=== PATIENT | male | born 1935 | race African-American/Black ===

== ENCOUNTER 2016-09-23 11:05 | Emergency (ER) ==
[2016-09-23] MEDS ORDERED: DUONEB (A & A) INH ONE (11:47)
--- NOTE | 2016-09-23 12:10 | PROVIDER DOCUMENTATION ---
HPI-Respiratory General - General Source: patient - History of Present Illness-Resp Quality of Pain: reports: none Severity in ED: reports: severe Onset/Duration: reports: 3 days ago Timing: reports: getting worse Cough Quality/Degree: reports: productive cough Current Respiratory Medication Therapy: Initiated see nurses note Similar Symptoms Previously?: No Recently seen or treated by another doctor?: Yes <Jeremías Gray - Last Filed: 09/23/16 13:00> <Velma Randall - Last Filed: 09/23/16 13:48> - General Chief Complaint: Shortness of Breath Stated Complaint: ABD PAIN Time Seen by Provider: 09/23/16 11:44 Allergies/Adverse Reactions: Patient Allergies Allergy/AdvReac Type Severity Reaction Status Date / Time No Known Allergies Allergy Verified 06/16/16 02:06 Home Medications: Budesonide/Formoterol Fumarate [Symbicort 80-4.5 Mcg Inhaler] 1 puff INH DAILY 06/01/16 Losartan/Hctz [Hyzaar 100/12.5 mg Tab] 1 tab PO DAILY 06/01/16 Albuterol Sulfate [Ventolin Hfa] 1 puff INH 4XDAY PRN PRN 06/02/16 Simvastatin 20 mg PO QHS 06/02/16 Tamsulosin [Flomax] 0.4 mg PO DAILY 06/02/16 - History of Present Illness-Resp Nature of Presenting Problem: Reports to er with cc of sob and wheezing x 1 month worsening past 3 days. Reports hx of bone cancer goes to once and month and gets a "unknown Injection." Reports productive cough. Weight loss x 1 year upon diagnosis of bone cancer. reports head pressure denies headache,n,v,f. Denies blurry vision, numbness. (Jeremías Gray) Review of Systems - Adult - REVIEW OF SYSTEMS - ADULT Constitutional: denies: chills, fever, fatique Eyes: denies: dry eyes, blurred vision, double vision, eye pain Ears, Nose, Mouth & Throat: reports: other (head pressure). denies: ear pain, sinus problem, throat pain Cardiovascular: denies: chest pain, irregular heart rate, orthopnea, syncope Respiratory: reports: cough, shortness of breath, wheezing. denies: dyspnea on exertion, pleurisy Gastrointestinal: denies: abdominal pain, diarrhea, nausea, vomiting Genitourinary: reports: no symptoms reported Musculoskeletal: reports: no symptoms reported Integumentary: reports: no symptoms reported Neurological: reports: no symptoms reported Psychiatric: reports: no symptoms reported Endocrine: reports: no symptoms reported Hematologic/Lymphatic: reports: no symptoms reported Allergic/Immunologic: reports: no symptoms reported All Other Systems: Reviewed and Negative <Annalisa Graypriscilla - Last Filed: 09/23/16 13:00> Past History - Adult - PAST MEDICAL HISTORY-ADULT Review of Records: reports: Nursing Assessment Review Major Childhood Illnesses: reports: denies history Cardiovascular: reports: CAD, HTN Respiratory: reports: COPD Gastrointestinal: reports: denies history Obstetrical/Gynecological: reports: denies history Genitourinary: reports: denies history Musculoskeletal: reports: denies history Neurological: reports: denies history Endocrine/Immune: reports: denies history Other Conditions: reports: denies history - PRIOR SURGERIES/PROCEDURES Surgical/Procedure History: reports: cardiac stent, other (cyst removed) - IMMUNIZATION STATUS Childhood Immunizations: See Nurse Assessment Flu Vaccine: See Nurse Assessment - FAMILY HISTORY Family History: reviewed, not pertinent - SOCIAL HISTORY Smoking: cigarettes, greater than 1 pack/day Provider spent 3-5 mins advising pt. on dangers of tobacco.: Discussed manners to quit use, and f/u contacts for add'l counseling. Substance Use: none/never <IsaacJeremías - Last Filed: 09/23/16 13:00> Physical Exam-General - PHYSICAL EXAM-ADULT Initial Vital Signs Reviewed: Yes - CONSTITUTIONAL General Appearance: alert, no apparent distress, cachetic, thin. negative: appears well - EYES Eyes: PERRL/EOMI, pink conjunctivae - HEAD, EARS, NOSE, MOUTH & THROAT HENMT: normocephalic/atraumatic, moist mucous membranes, normal ENT inspection - NECK Neck: non-tender, full range of motion, supple, normal inspection - RESPIRATORY Respiratory: chest non-tender, lungs clear, normal breath sounds, no pleuratic chest pain, no respiratory distress, no accessory muscle use - CARDIOVASCULAR Cardiovascular: normal peripheral pulses, regular rate, rhythm, no edema, no gallop, no JVD, no murmur - GASTROINTESTINAL (ABDOMEN) Abdominal Exam: normal bowel sounds, non tender, soft, no organomegaly, no pulsatile mass - LYMPHATIC Lymphatic: no adenopathy - MUSCULOSKELETAL Back Exam: normal inspection, no CVA tenderness, no vertebral tenderness Extremity: normal range of motion, non-tender, normal gait - SKIN Integumentary: normal color, normal turgor, warm/dry - NEUROLOGIC Neurologic: grossly normal, no motor/sensory deficits - PSYCHIATRIC Psych/Mental Status: normal mood/affect, normal thought content, normal thought process, oriented x 3 <Jeremías Gray - Last Filed: 09/23/16 13:00> Progress - EKG 1 Time of EKG reading by physician:: 12:26 EKG Read and Signed by:: Jone Kidd EKG Interpretation (*Must complete 3 of following elements*): Normal Rate: 62 Rhythm: nsr [place]: normal QRS: normal <Jeremías Gray - Last Filed: 09/23/16 13:00> - XRAY 1 XRAY: Bilateral XRAY Study: Chest Impression: Normal (stable per radiology) <Velma Randall - Last Filed: 09/23/16 13:48> - PLAN OF CARE/RESULTS Progress/Plan/Lab Results: Orders Category Date Time Status CHEST-2 VIEWS [RAD] Stat Exams 09/23/16 11:49 Taken CBC WITH ELECTRONIC DIFF [HEME] Stat Lab 09/23/16 11:48 Ordered CK PROFILE [SP CHEM] Stat Lab 09/23/16 11:48 Ordered COMPREHENSIVE METABOLIC PANEL [CHEM] Stat Lab 09/23/16 11:[address] Stat Lab 09/23/16 11:48 Uncollected MAGNESIUM [CHEM] Stat Lab 09/23/16 11:48 Ordered TROPONIN T Stat Lab 09/23/16 11:48 Ordered Albuterol 2.5MG/Ipratrop 0.5MG [Duoneb (A & A)] Med 09/23/16 11:47 Discontinued 3 ml INH NOW ONE Aerosol Treatments Routine Oth 09/23/16 11:47 Active Aerosol Treatments Stat Oth 09/23/16 11:47 Active EKG [EKG] Stat Ther 09/23/16 11:48 Ordered Vital Signs - 24 hr 09/23/16 11:12 Temperature 97.8 F Pulse Rate 77 Respiratory 22 Rate Blood Pressure 145/84 O2 Sat by Pulse 98 Oximetry (Jeremías Gray) Vital Signs Temp Pulse Resp BP Pulse Ox 09/23/16 12:29 98.6 F 68 18 150/80 98 09/23/16 11:12 97.8 F 77 22 145/84 98 No Known Allergies Allergy (Verified 06/16/16 02:06) Budesonide/Formoterol Fumarate [Symbicort 80-4.5 Mcg Inhaler] 1 puff INH DAILY 06/01/16 Losartan/Hctz [Hyzaar 100/12.5 mg Tab] 1 tab PO DAILY 06/01/16 Albuterol Sulfate [Ventolin Hfa] 1 puff INH 4XDAY PRN PRN 06/02/16 Simvastatin 20 mg PO QHS 06/02/16 Tamsulosin [Flomax] 0.4 mg PO DAILY 06/02/16 Prednisone 10 mg PO DAILY #30 tablet 06/04/16 Ciprofloxacin HCl [Cipro] 500 mg PO BID #20 tablet 06/19/16 Cephalexin [Keflex] 500 mg PO Q6HR #28 capsule 07/03/16 Meloxicam [Mobic] 7.5 mg PO DAILY PRN PRN #15 tablet 07/03/16 Laboratory 09/23/16 09/23/16 09/23/16 12:55 12:55 12:55 WBC 4.48 L RBC 3.27 L Hgb 10.2 L Hct 32.6 L MCV 99.7 H MCH 31.2 H MCHC 31.3 L RDW Std Deviation 14.4 Plt Count 191 MPV 9.0 Immature Gran % (Auto) 0.2 Neut % (Auto) 65.0 Lymph % (Auto) 22.5 Boyle % (Auto) 12.1 H Eos % (Auto) 0.2 Baso % (Auto) 0.0 Immature Gran # (Auto) 0.01 Neut # (Auto) 2.91 Lymph # (Auto) 1.01 L Boyle # (Auto) 0.54 Eos # (Auto) 0.01 Baso # (Auto) 0.00 Sodium 140 Potassium 4.2 Chloride 111 H Carbon Dioxide 20 L Anion Gap 9 BUN 21 Creatinine 1.2 Estimated GFR/1.73 m2 58 BUN/Creatinine Ratio 18 Glucose 85 Calculated Osmolality 282 Calcium 8.4 L Magnesium 1.6 Total Bilirubin 0.40 AST 18 ALT 8 L Alkaline Phosphatase 117 Creatine Kinase 56 Troponin T < 0.010 Total Protein 6.6 Albumin 3.8 Globulin 3.0 Albumin/Globulin Ratio 1.0 Influenza A (Rapid) Influenza B (Rapid) 09/23/16 12:40 WBC RBC Hgb Hct MCV MCH MCHC RDW Std Deviation Plt Count MPV Immature Gran % (Auto) Neut % (Auto) Lymph % (Auto) Boyle % (Auto) Eos % (Auto) Baso % (Auto) Immature Gran # (Auto) Neut # (Auto) Lymph # (Auto) Boyle # (Auto) Eos # (Auto) Baso # (Auto) Sodium Potassium Chloride Carbon Dioxide Anion Gap BUN Creatinine Estimated GFR/1.73 m2 BUN/Creatinine Ratio Glucose Calculated Osmolality Calcium Magnesium Total Bilirubin AST ALT Alkaline Phosphatase Creatine Kinase Troponin T Total Protein Albumin Globulin Albumin/Globulin Ratio Influenza A (Rapid) NEGATIVE Influenza B (Rapid) NEGATIVE Orders Category Date Time Status CHEST-2 VIEWS [RAD] Stat Exams 09/23/16 11:49 Completed CBC WITH ELECTRONIC DIFF [HEME] Stat Lab 09/23/16 12:55 Completed CK PROFILE [SP CHEM] Stat Lab 09/23/16 12:55 Completed COMPREHENSIVE METABOLIC PANEL [CHEM] Stat Lab 09/23/16 12:[address] Stat Lab 09/23/16 12:40 Completed MAGNESIUM [CHEM] Stat Lab 09/23/16 12:55 Completed TROPONIN T Stat Lab 09/23/16 12:55 Completed Albuterol 2.5MG/Ipratrop 0.5MG [Duoneb (A & A)] Med 09/23/16 11:47 Discontinued 3 ml INH NOW ONE Aerosol Treatments Routine Oth 09/23/16 11:47 Active Aerosol Treatments Stat Oth 09/23/16 11:47 Active EKG [EKG] Stat Ther 09/23/16 11:48 Draft (Velma Randall) Departure <Jeremías Gray - Last Filed: 09/23/16 13:00> - Departure Time of Disposition Order: 13:47 Certified Medical Emergency: Emergent <Velma Randall - Last Filed: 09/23/16 13:48> - Departure DIAGNOSIS: Bronchitis, COPD exacerbation Disposition: HOME 01 Condition: Stable Additional Instructions: Follow up with your primary care physician this week ED Follow Up Instructions: You have been treated by a care provider in the Emergency Department. These instructions are being provided to you so you can have an understanding of how to care for yourself upon discharge. Upon discharge from the Emergency Department, you are responsible for making arrangements for follow-up care by a physician of your choice. Take all prescribed medications as directed. Return to the Emergency Department immediately for any new or worsening symptoms. You may call the Physician Referral phone number at [phone] to obtain a list of Physicians who are taking new patients. Prescriptions: Nebulizer [Aeroneb Go Nebuliser] 1 each MC DIRECTED #1 each Albuterol [Albuterol Neb] 2.5 mg INH Q4H PRN PRN #1 neb PRN Reason: Wheezing Prednisone [Deltasone] 20 mg PO DIRECTED #12 tablet Azithromycin [Zithromax Z-Vega] 250 mg PO DIRECTED #1 pkg Attestation - Scribe Verification/Attestation Scribe:: Jeremías Gray Acting as Scribe for:: Velma Randall Scribe documention review:: This chart was documented by a scribe and accurately reflects the service the provider performed and the decisions made by the provider. <Jeremías Gray - Last Filed: 09/23/16 13:00> Physician Attestation
--- NOTE | 2016-09-23 13:05 | Diag Imaging Result Document ---
PROCEDURE NAME: CHEST-2 VIEWS - 09/23/2016 TWO VIEWS OF THE CHEST: FINDINGS: There are granulomatous calcifications in the right hilum. There is fibrosis in the right base. Compared to 08/26/2016, there has been no significant change in the appearance of the chest. IMPRESSION: Stable chest.
[2016-09-23 13:12] LABS: MANUAL DIFF NEEDED? NO
--- NOTE | 2016-09-23 13:13 | EKG Report ---
Test Performed on : 09/23/2016 12:26:34 PM Test Reason : CP Blood Pressure : / mmHG Vent. Rate : 062 BPM Atrial Rate : 062 BPM P-R Int : 152 ms QRS Dur : 080 ms QT Int : 410 ms P-R-T Axes : 033 030 045 degrees QTc Int : 416 ms Normal sinus rhythm. Normal ECG When compared with ECG of 02-JUN-2016 17:53, aberrant conduction. is no longer present Vent. rate has decreased BY 42 BPM QRS axis shifted right T wave amplitude has increased in Lateral leads QT has shortened Unconfirmed Result
[2016-09-23 13:15] LABS: EOS# 0.01 X1000 (0.0-0.7); EOS% 0.2 % (0.0-10.0); HEMATOCRIT 32.6 % (42.0-52.0); HEMOGLOBIN 10.2 g/dL (14.0-18.0); IMM GRAN# 0.01 X1000 (0.0-0.04); IMM GRAN% 0.2 % (0.0-0.5); LYMPH# 1.01 X1000 (1.2-3.4); LYMPH% 22.5 % (20.5-51.1); MCH 31.2 PG (27-31); MCHC 31.3 g/dL (33-37); MCV 99.7 FL (81-99); MONO# 0.54 X1000 (0.11-0.59); MONO% 12.1 % (1.7-9.3); PLT 191 X1000 (130-400); RBC 3.27 XMIL (4.7-6.1)
[2016-09-23 13:37] LABS: ALBUMIN 3.8 g/dL (3.5-5.0); CALCIUM 8.4 mg/dL (8.8-10.2); MAGNESIUM 1.6 mg/dL (1.5-2.7); POTASSIUM 4.2 mmol/L (3.5-5.1); TOTAL BILIRUBIN 0.4 mg/dL (0.20-1.00); TOTAL PROTEIN 6.6 g/dL (6.3-8.3)
[2016-09-23 14:16] VITALS: BP 110/68
== END 2016-09-23 14:15 | disposition home or self-care (01) ==
LOC: P.ED 11:05
DX: J40 Bronchitis, not specified as acute or chronic (principal); J44.1 Chronic obstructive pulmonary disease with (acute) exacerbation; R05 Cough; R09.3 Abnormal sputum; R06.02 Shortness of breath; R10.9 Unspecified abdominal pain; R06.2 Wheezing; R51 Headache; Z79.899 Other long term (current) drug therapy; R63.4 Abnormal weight loss; I25.10 Atherosclerotic heart disease of native coronary artery without angina pectoris; I10 Essential (primary) hypertension; F17.210 Nicotine dependence, cigarettes, uncomplicated; Z85.830 Personal history of malignant neoplasm of bone; Z95.5 Presence of coronary angioplasty implant and graft; Z71.6 Tobacco abuse counseling
CPT/HCPCS: 36415; 71020; 80053; 82550; 83735; 84484; 85025; 87804; 93005; 94640

== ENCOUNTER 2016-11-12 21:57 | Emergency (ER) ==
[2016-11-12 22:08] VITALS: BP 134/86
--- NOTE | 2016-11-12 23:18 | PROVIDER DOCUMENTATION ---
HPI-Male Problem - General Chief Complaint: Urinary Retention Stated Complaint: CANT URINATE Time Seen by Provider: 11/12/16 22:29 Source: patient Allergies/Adverse Reactions: Patient Allergies Allergy/AdvReac Type Severity Reaction Status Date / Time No Known Allergies Allergy Verified 06/16/16 02:06 Home Medications: Home Medication List Medication Instructions Recorded Confirmed Last Taken Type Budesonide/Formoterol Fumarate 1 puff INH DAILY 06/01/16 10/30/16 Unknown History [Symbicort 80-4.5 Mcg Inhaler] Losartan/Hctz [Hyzaar 100/12.5 mg 1 tab PO DAILY 06/01/16 10/30/16 Unknown History Tab] Simvastatin 20 mg PO QHS 06/02/16 10/30/16 Unknown History Tamsulosin [Flomax] 0.4 mg PO DAILY 06/02/16 10/30/16 Unknown History Meloxicam [Mobic] 7.5 mg PO DAILY PRN PRN #15 tablet 07/03/16 10/30/16 Unknown Rx Albuterol [Albuterol Neb] 2.5 mg INH Q4H PRN PRN #1 neb 09/23/16 10/30/16 Unknown Rx Nebulizer [Aeroneb Go Nebuliser] 1 each MC DIRECTED #1 each 09/23/16 Unknown Rx - History of Present Illness-Male Location of Complaint: reports: urethral Radiation: reports: none Quality of Pain: reports: none Severity in ED: reports: mild Onset/Duration: reports: 24 hours ago Timing: reports: still present Context/Activities at Onset: reports: none Urinary Symptoms: reports: retention. denies: dysuria, hematuria Sexual intercourse history: reports: Not Active Contraception: reports: none Associated Symptoms: reports: none Associated Symptoms: reports: denies symptoms Similar Symptoms Previously?: Yes Recently seen or treated by another doctor?: No Review of Systems - Adult - REVIEW OF SYSTEMS - ADULT Constitutional: denies: chills, fever, fatique Cardiovascular: denies: chest pain, irregular heart rate, palpitations Respiratory: denies: cough, shortness of breath, wheezing Gastrointestinal: denies: abdominal pain, diarrhea, nausea, vomiting Genitourinary: reports: hesitency, urinary retention. denies: dysuria, hematuria Musculoskeletal: denies: back pain, muscle aches, neck pain Integumentary: denies: hives, itching, rash All Other Systems: Reviewed and Negative Past History - Adult - PAST MEDICAL HISTORY-ADULT Review of Records: reports: Old Records Reviewed, Nursing Assessment Review Cardiovascular: reports: CAD, HTN Respiratory: reports: COPD - PRIOR SURGERIES/PROCEDURES Surgical/Procedure History: reports: cardiac stent, other (cyst removed) - IMMUNIZATION STATUS Childhood Immunizations: See Nurse Assessment Flu Vaccine: See Nurse Assessment - FAMILY HISTORY Family History: reviewed, not pertinent - SOCIAL HISTORY Living Situation: family Physical Exam-General - PHYSICAL EXAM-ADULT Initial Vital Signs Reviewed: Yes - CONSTITUTIONAL General Appearance: appears well, alert, no apparent distress - RESPIRATORY Respiratory: chest non-tender, lungs clear, normal breath sounds, no pleuratic chest pain, no respiratory distress, no accessory muscle use - CARDIOVASCULAR Cardiovascular: normal peripheral pulses, regular rate, rhythm, no edema, no gallop, no JVD, no murmur - GASTROINTESTINAL (ABDOMEN) Abdominal Exam: normal bowel sounds, non tender, soft, no organomegaly, no pulsatile mass - MUSCULOSKELETAL Extremity: normal inspection - SKIN Integumentary: normal color, normal turgor, warm/dry - PSYCHIATRIC Psych/Mental Status: normal mood/affect, normal thought content, normal thought process, oriented x 3 Departure - Departure Time of Disposition Order: 23:16 DIAGNOSIS: Urinary retention due to benign prostatic hyperplasia Disposition: HOME 01 Certified Medical Emergency: Emergent Condition: Good Additional Instructions: ED Follow Up Instructions: You have been treated by a care provider in the Emergency Department. These instructions are being provided to you so you can have an understanding of how to care for yourself upon discharge. Upon discharge from the Emergency Department, you are responsible for making arrangements for follow-up care by a physician of your choice. Take all prescribed medications as directed. Return to the Emergency Department immediately for any new or worsening symptoms. You may call the Physician Referral phone number at [phone] to obtain a list of Physicians who are taking new patients.follow up with urologist Referrals: Lalo Perez DO [STAFF PHYSICIAN] - Shane Dwyer MD [Primary Care Provider] - Instructions: Urinary Retention, Acute, Male Attestation - Scribe Verification/Attestation Scribe:: Dominik Simon Acting as Scribe for:: Perfecto Eric Scribe documention review:: This chart was documented by a scribe and accurately reflects the service the provider performed and the decisions made by the provider.
== END 2016-11-12 23:14 | disposition home or self-care (01) ==
LOC: P.ED 21:57
DX: N40.1 Benign prostatic hyperplasia with lower urinary tract symptoms (principal); R33.8 Other retention of urine; R39.11 Hesitancy of micturition; I25.10 Atherosclerotic heart disease of native coronary artery without angina pectoris; I10 Essential (primary) hypertension; J44.9 Chronic obstructive pulmonary disease, unspecified; Z79.899 Other long term (current) drug therapy
CPT/HCPCS: 51702; 99282

== ENCOUNTER 2017-05-11 20:11 | Inpatient (IN) ==
[2017-05-11] MEDS ORDERED: ASPIRIN PO STA (20:52)
[2017-05-11] MEDS ORDERED: DUONEB (A & A) INH ONE (20:53)
[2017-05-11] MEDS ORDERED: SOLU-MEDROL IV ONE (20:53)
[2017-05-11] MEDS ORDERED: ALBUTEROL NEB INH ONE ×2 (20:53→23:00)
[2017-05-11 21:08] LABS: MANUAL DIFF NEEDED? NO
[2017-05-11 21:12] LABS: BASO% 0.7 % (0.0-0.8); EOS# 0.02 X1000 (0.0-0.7); EOS% 0.7 % (0.0-10.0); HEMATOCRIT 31.1 % (42.0-52.0); LYMPH# 0.61 X1000 (1.2-3.4); LYMPH% 21.3 % (20.5-51.1); MCHC 35.4 g/dL (33-37); MCV 93.4 FL (81-99); MONO# 0.46 X1000 (0.11-0.59); MONO% 16.1 % (1.7-9.3); MPV 8.6 FL (7.4-10.4); NEUT% 61.2 % (42.2-75.2); PLT 274 X1000 (130-400); RBC 3.33 XMIL (4.7-6.1)
[2017-05-11 21:32] LABS: INR 1.26 (0.86-1.15); PROTIME 16.8 Seconds (12.1-15.5)
[2017-05-11 21:33] LABS: PTT PL 41.5 Seconds (22.6-43.9)
[2017-05-11 22:16] LABS: AGAP 9; ALBUMIN 3.4 g/dL (3.5-5.0); ALKALINE PHOSPHATASE 93 U/L (32-122); BUN 12 mg/dL (8-22); CALCIUM 8.1 mg/dL (8.8-10.2); CHLORIDE 82 mmol/L (98-107); CK PROFILE 103 U/L (24-204); COSMO 228; GOT 17 U/L (10-34); GPT 8 U/L (10-44); MAGNESIUM 1.6 mg/dL (1.5-2.7); POTASSIUM 3.6 mmol/L (3.5-5.1); TCO2 22 mmol/L (25-35)
[2017-05-11 22:21] LABS: SODIUM 113 mmol/L (136-145)
--- NOTE | 2017-05-11 22:34 | PROVIDER DOCUMENTATION ---
This chart was entered by Laurel Ramos Scribe, acting as scribe for Albert Luna MD. HPI-Respiratory General - General Chief Complaint: General Adult Stated Complaint: SOB,EDEMA,SOB Time Seen by Provider: 05/11/17 20:51 Source: patient Allergies/Adverse Reactions: Patient Allergies Allergy/AdvReac Type Severity Reaction Status Date / Time No Known Allergies Allergy Verified 04/05/17 11:58 Home Medications: Home Medication List Medication Instructions Recorded Confirmed Last Taken Type Budesonide/Formoterol Fumarate 1 puff INH DAILY 06/01/16 04/05/17 12/08/16 08: 00 History [Symbicort 80-4.5 Mcg Inhaler] Losartan/Hctz [Hyzaar 100/12.5 mg 1 tab PO DAILY 06/01/16 04/05/17 12/08/16 08: 00 History Tab] Simvastatin 20 mg PO QHS 06/02/16 04/05/17 12/08/16 08:00 History Albuterol [Albuterol Neb] 2.5 mg INH Q4H PRN PRN #1 neb 09/23/16 04/05/17 08:00 Rx Albuterol Sulfate [Ventolin] 5 mg IH DAILY 12/02/16 04/05/17 12/08/16 23:30 History Clopidogrel Bisulfate [Plavix] 75 mg PO DAILY 12/02/16 04/05/17 11/29/16 History Folic Acid 1 mg PO DAILY 12/02/16 04/05/17 12/08/16 08:00 History Furosemide 20 mg PO PRN PRN 12/02/16 04/05/17 12/07/16 History Metoprolol [Lopressor] 50 mg PO BID 12/02/16 04/05/17 12/09/16 03:00 History Mirtazapine [Remeron] 30 mg PO PRN PRN 12/02/16 04/05/17 12/08/16 08:00 History Potassium Chloride [Klor-Con] 20 meq PO PRN PRN 12/02/16 04/05/17 12/08/16 08: 00 History Promethazine [Phenergan] 25 mg PO Q6H PRN PRN 12/02/16 04/05/17 12/08/16 08:00 History Valacyclovir [Valtrex] 500 mg PO DAILY 12/02/16 04/05/17 12/08/16 12:00 History Hydrocodone/APAP 7.5 mg/325 mg 1 each PO Q4H PRN #12 tablet 12/10/16 04/05/17 Unknown Rx [[place]-7.5] Ondansetron [Zofran] 4 mg PO Q6H PRN PRN #20 tablet 04/05/17 Unknown Rx - History of Present Illness-Resp Nature of Presenting Problem: 82 year old F presents to the ED with a cc of shortness of breath with an onset of this afternoon. Pt states that he has taken his medications today. PT also c/ o a headache. Pt denies chest pain. PT states that he smokes 1 pack of cigarettes per day. Severity in ED: reports: mild Onset/Duration: reports: this afternoon Timing: reports: still present Cough Quality/Degree: reports: mild, dry cough Episode Frequency: no prior episodes Current Respiratory Medication Therapy: Initiated see nurses note Associated Symptoms: reports: cough, shortness of breath Similar Symptoms Previously?: Yes Recently seen or treated by another doctor?: No Review of Systems - Adult - REVIEW OF SYSTEMS - ADULT Constitutional: denies: chills, fever Eyes: reports: no symptoms reported Ears, Nose, Mouth & Throat: denies: ear pain, throat pain Cardiovascular: denies: chest pain, palpitations Respiratory: reports: cough, shortness of breath Gastrointestinal: denies: abdominal pain, nausea Genitourinary: denies: dysuria, hematuria Musculoskeletal: denies: muscle aches, muscle weakness Integumentary: denies: skin sores/ulcer, skin thickening Neurological: reports: no symptoms reported Psychiatric: reports: no symptoms reported Endocrine: reports: no symptoms reported Hematologic/Lymphatic: reports: no symptoms reported Allergic/Immunologic: reports: no symptoms reported All Other Systems: Reviewed and Negative Past History - Adult - PAST MEDICAL HISTORY-ADULT Review of Records: reports: Nursing Assessment Review, Medications Reviewed Major Childhood Illnesses: reports: denies history Cardiovascular: reports: CAD, HTN Respiratory: reports: COPD Gastrointestinal: reports: denies history Obstetrical/Gynecological: reports: denies history Genitourinary: reports: denies history Musculoskeletal: reports: cancer (bone) Neurological: reports: denies history Endocrine/Immune: reports: denies history Other Conditions: reports: denies history - PRIOR SURGERIES/PROCEDURES Surgical/Procedure History: reports: cardiac stent, other (cataract sx; abscess ; TURP) - IMMUNIZATION STATUS Childhood Immunizations: See Nurse Assessment Flu Vaccine: See Nurse Assessment - FAMILY HISTORY Family History: reviewed, not pertinent - SOCIAL HISTORY Smoking: cigarettes Provider spent 3-5 mins advising pt. on dangers of tobacco.: Discussed manners to quit use, and f/u contacts for add'l counseling. Substance Use: none/never Alcohol Use Frequency: never Living Situation: family Physical Exam-General - PHYSICAL EXAM-ADULT Initial Vital Signs Reviewed: Yes - CONSTITUTIONAL General Appearance: appears well, alert, no apparent distress - RESPIRATORY Respiratory: chest non-tender, lungs clear, wheezing - CARDIOVASCULAR Cardiovascular: normal peripheral pulses, regular rate, rhythm, no edema - GASTROINTESTINAL (ABDOMEN) Abdominal Exam: normal bowel sounds, non tender, soft - MUSCULOSKELETAL Extremity: pedal edema (2+ to lower 1/3 of bilateral legs) - SKIN Integumentary: normal color, normal turgor, warm/dry - PSYCHIATRIC Psych/Mental Status: normal mood/affect, normal thought content, normal thought process, oriented x 3 Progress - PLAN OF CARE/RESULTS Progress/Plan/Lab Results: Vital Signs - 8 hr 05/11/17 20:26 05/11/17 21:20 Temperature 98 F Pulse Rate 69 49 L Respiratory Rate 25 H 18 Blood Pressure 146/69 O2 Sat by Pulse Oximetry 98 100 Laboratory Results - last 24 hr 05/11/17 05/11/17 05/11/17 21:00 21:00 21:00 WBC RBC Hgb Hct MCV MCH MCHC RDW Std Deviation Plt Count MPV Immature Gran % (Auto) Neut % (Auto) Lymph % (Auto) Graves % (Auto) Eos % (Auto) Baso % (Auto) Immature Gran # (Auto) Neut # (Auto) Lymph # (Auto) Graves # (Auto) Eos # (Auto) Baso # (Auto) PT INR APTT (Factor Assay) D-Dimer Sodium 113 L* Potassium 3.6 Chloride 82 L Carbon Dioxide 22 L Anion Gap 9 BUN 12 Creatinine 1.0 Estimated GFR/1.73 m2 > 60 BUN/Creatinine Ratio 12 Glucose 89 Calculated Osmolality 228 Calcium 8.1 L Magnesium 1.6 Total Bilirubin 0.50 AST 17 ALT 8 L Alkaline Phosphatase 93 Creatine Kinase 103 Troponin T < 0.010 Msh-A-Wdywbkxxovk Pept 844 H Total Protein 6.0 L Albumin 3.4 L Globulin 3.0 Albumin/Globulin Ratio 1.0 05/11/17 05/11/17 21:00 21:00 WBC 2.86 L RBC 3.33 L Hgb 11.0 L Hct 31.1 L MCV 93.4 MCH 33.0 H MCHC 35.4 RDW Std Deviation 10.8 L Plt Count 274 MPV 8.6 Immature Gran % (Auto) 0.0 Neut % (Auto) 61.2 Lymph % (Auto) 21.3 Graves % (Auto) 16.1 H Eos % (Auto) 0.7 Baso % (Auto) 0.7 Immature Gran # (Auto) 0.00 Neut # (Auto) 1.75 Lymph # (Auto) 0.61 L Graves # (Auto) 0.46 Eos # (Auto) 0.02 Baso # (Auto) 0.02 PT 16.8 H INR 1.26 H APTT (Factor Assay) 41.5 D-Dimer 0.72 H Sodium Potassium Chloride Carbon Dioxide Anion Gap BUN Creatinine Estimated GFR/1.73 m2 BUN/Creatinine Ratio Glucose Calculated Osmolality Calcium Magnesium Total Bilirubin AST ALT Alkaline Phosphatase Creatine Kinase Troponin T Aeg-T-Lommltkiwoz Pept Total Protein Albumin Globulin Albumin/Globulin Ratio Orders Category Date Time Status Cardiac Monitoring DIRECTED Care 05/11/17 20:52 Active Oxygen Therapy- ED Nursing DIRECTED Care 05/11/17 20:52 Active Saline Loc NOW Care 05/11/17 20:52 Active CHEST-2 VIEWS [RAD] Stat Exams 05/11/17 20:52 Taken CBC WITH ELECTRONIC DIFF [HEME] Stat Lab 05/11/17 21:00 Completed CK PROFILE [SP CHEM] Stat Lab 05/11/17 21:00 Completed COMPREHENSIVE METABOLIC PANEL [CHEM] Stat Lab 05/11/17 21:00 Completed D-DIMER PL [COAG] Stat Lab 05/11/17 21:00 Completed MAGNESIUM [CHEM] Stat Lab 05/11/17 21:00 Completed PRO B-NATRIURETIC PEPTIDE Stat Lab 05/11/17 21:00 Com[address]IME WITH INR PL [COAG] Stat Lab 05/11/17 21:[address] [COAG] Stat Lab 05/11/17 21:00 Completed TROPONIN T Stat Lab 05/11/17 21:00 Completed Albuterol 2.5MG/Ipratrop 0.5MG [Duoneb (A & A)] Med 05/11/17 20:53 Discontinued 3 ml INH NOW ONE Albuterol [Albuterol Neb] Med 05/11/17 20:53 Discontinued 5 mg INH NOW ONE Aspirin Med 05/11/17 20:52 Discontinued 325 mg PO STAT STA CefTRIAXONE [Rocephin] 1 gm Med 05/11/17 22:33 Active 0.9% Sodium Chloride Inj [Ns] 50 ml IV NOW Methylprednisolone Sod Succ [Solu-Medrol] Med 05/11/17 20:53 Discontinued 125 mg IV NOW ONE Aerosol Treatments Routine Oth 05/11/17 20:53 Completed Aerosol Treatments Stat Oth 05/11/17 20:53 Completed EKG [EKG] Stat Ther 05/11/17 20:52 Ordered Result Diagrams: 05/11/17 21:00 05/11/17 21:00 - REASSESSMENT Reassessment #1 Time Reassessed: 22:33 (pt still has moderate wheezing and reports minimal improvemnt so far) Status: other - EKG 1 Time of EKG reading by physician:: 22:23 EKG Read and Signed by:: Albert Luna EKG Interpretation (*Must complete 3 of following elements*): Normal Rate: 62 Rhythm: sinus rhythm with marked sinus arrhythmia [place]: normal Departure - Departure Date of Disposition Decision: 05/11/17 Time of Disposition Decision: 22:34 DIAGNOSIS: COPD exacerbation, Hyponatremia Disposition: ADMITTED INPATIENT 09 Certified Medical Emergency: Emergent Condition: Fair Referrals and Follow-Ups: Shane Dwyer MD [Primary Care Provider] - - Critical Care Note This patient required my direct & personal management of CC.: No Attestation - Physician/ DANILO Attestation Patient care was provided by Advanced Practice Provider:: No The physician spent face to face time with patient:: Yes Advanced Practice Provider documentation review:: Supervising physician onsite and consulted in the evaluation and care of this patient. The physician did have a face to face encounter with the patient. This chart was documented by the indicated scribe, (Laurel Ramos Scribe) and accurately reflects the services I performed and decisions made by Cheryl quintero Kevin F., MD, as attested by the provider's signature.
--- NOTE | 2017-05-11 22:36 | Diag Imaging Result Doc PS360 ---
EXAM: CHEST-2 VIEWS - 05/11/2017 HISTORY: CP TECHNIQUE: Chest two views COMPARISON: Portable exam of 04/12/2017 FINDINGS: Heart size appears the upper range of normal and stable. There is stable tortuosity of the thoracic aorta. There are right lower lung calcified granuloma and calcified right hilar and mediastinal lymph nodes from old granulomatous disease which are stable. The lungs otherwise appear essentially clear. There is no pleural effusion or pneumothorax identified. There is colon gas noted beneath the right hemidiaphragm, similar to the previous exam. IMPRESSION: No evidence of acute disease. Electronically signed by Norman Garcia 05/11/2017 10:33 PM
--- NOTE | 2017-05-11 23:05 | EKG Report ---
Test Performed on : 05/11/2017 10:23:24 PM Test Reason : CHEST PAIN Blood Pressure : / mmHG Vent. Rate : 062 BPM Atrial Rate : 062 BPM P-R Int : 176 ms QRS Dur : 082 ms QT Int : 472 ms P-R-T Axes : 081 -21 063 degrees QTc Int : 479 ms Sinus rhythm. with marked sinus arrhythmia. Otherwise normal ECG When compared with ECG of 12-APR-2017 15:32, premature ventricular complexes. are no longer present T wave amplitude has decreased in Lateral leads QT has lengthened Unconfirmed Result
[2017-05-11] MEDS: ROCEPHIN 1 GM in NS 50 ML IV ONE (23:35)
[2017-05-12] MEDS: DUONEB (A & A) INH SCH ×7 (00:58→23:38)
[2017-05-12] MEDS: ROCEPHIN 1 GM in NS 50 ML IV ONE (01:22)
[2017-05-12] MEDS ORDERED: ROCEPHIN 1 GM in NS 50 ML IV ONE (02:00)
[2017-05-12 06:34] LABS: AGAP 15; BUN 13 mg/dL (8-22); CALCIUM 8.3 mg/dL (8.8-10.2); CHLORIDE 83 mmol/L (98-107); COSMO 238; POTASSIUM 3.8 mmol/L (3.5-5.1); TCO2 19 mmol/L (25-35)
[2017-05-12 06:38] LABS: SODIUM 116 mmol/L (136-145)
[2017-05-12] MEDS: NS 1,000 ML IV SCH ×2 (11:45→21:55)
[2017-05-12] MEDS ORDERED: ALBUTEROL NEB INH PRN (13:17)
[2017-05-12] MEDS ORDERED: REMERON SOLTAB PO PRN (13:17)
[2017-05-12] MEDS ORDERED: PHENERGAN PO PRN (13:17)
[2017-05-12] MEDS ORDERED: ZOFRAN ODT PO PRN (13:17)
[2017-05-12] MEDS: VALTREX PO SCH (13:53)
[2017-05-12] MEDS: FOLIC ACID PO SCH (13:53)
[2017-05-12] MEDS: PLAVIX PO SCH (13:54)
--- NOTE | 2017-05-12 14:37 | HISTORY AND PHYSICAL ---
PRIMARY CARE PHYSICIAN: Dr. Dwyer ONCOLOGIST: Dr. Nieves CHIEF COMPLAINT: Shortness of breath and a headache. HISTORY OF PRESENTING ILLNESS: This is an 82-year-old, male who presents to [facility] ER with complaints of shortness of breath that began on the afternoon of arrival. Also complained of a headache. States that he continues to be a pack-a-day smoker. Has a diagnosis of multiple myeloma, which is followed by Dr. Nieves. His workup in the ER showed a chest x-ray with no evidence of acute disease. He was noted to have a sodium of 113, with a chloride of 82. His white blood cell count is 2.86. His baseline white blood cell count appears to be 4 to 6, so this is certainly below his baseline. So, he was admitted to the medical unit for further evaluation and treatment. PAST MEDICAL HISTORY: Multiple myeloma, coronary artery disease, hypertension, COPD, GERD, and hyperlipidemia. PAST SURGICAL HISTORY: Heart stent placement, cataract surgery, a TURP and suprapubic catheter placement. FAMILY HISTORY: Noncontributory. SOCIAL HISTORY: Currently lives with family. Smokes 1 pack of cigarettes a day , and denies any alcohol or illicit drug use. ALLERGIES: He has no known drug allergies. HOME MEDICATIONS: He takes albuterol nebulizers q.4 hours p.r.n., Ventolin 5 mg inhalation daily, Symbicort 80/4.5 mcg inhaler 1 puff daily, Plavix 75 mg p.o. daily, folic acid 1 mg p.o. daily, Lasix 20 mg p.o. p.r.n. will be held, Hyzaar 100/12.5 will be held, Lopressor 50 mg p.o. b.i.d., Remeron 30 mg p.o. p.r.n., Zofran 4 mg p.o. q.6 hours p.r.n., potassium 20 mEq p.o. p.r.n. will be held, Phenergan 25 mg p.o. q.6 hours p.r.n., simvastatin 20 mg p.o. at bedtime, and Valtrex 500 mg p.o. daily. LABORATORY DATA: White blood cell count of 2.86, a hemoglobin of 11, hematocrit 31.1, platelets 274,000. PT and INR of 16.8 and 1.26. D-dimer 0.72. Sodium of 113, potassium 3.6, chloride 82, CO2 22, BUN of 12, creatinine of 1, glucose 89, magnesium 1.6. Cardiac enzymes were negative. ProBNP of 844. DIAGNOSTICS: The chest x-ray showed no evidence of acute disease. EKG showed sinus rhythm with marked sinus arrhythmia at 62. REVIEW OF SYSTEMS: He denied any fever, chills, blurred vision, dizziness, chest pain. He has had a nonproductive cough and some shortness of breath. Also had a headache. Denied any abdominal pain, constipation, diarrhea, burning or hurting with urination. PHYSICAL EXAMINATION: VITAL SIGNS: On arrival, he had a temperature of 98 degrees, pulse 69, respirations 25 blood pressure 146/69, saturating 98% on room air. GENERAL: This is an 82-year-old male, who is sitting up on the side of the bed and answers questions appropriately. HEENT: Normocephalic and atraumatic. Pupils are equal, round, reactive to light. Extraocular movements are intact. Oropharynx and nares are clear. NECK: Supple. LUNGS: Some mild wheezing throughout entire posterior lung harper. Equal lung expansion and chest wall movement noted. HEART: Regular rate and rhythm. No murmurs, rubs, or gallops. ABDOMEN: Soft, nontender, nondistended. Bowel sounds are present x4 quadrants. EXTREMITIES: There is no clubbing, cyanosis, or edema. NEUROLOGICAL: The cranial nerves 2 through 12 appear grossly intact. ASSESSMENT: 1. An acute chronic obstructive pulmonary disease exacerbation. 2. Hyponatremia. 3. Leukopenia. 4. Tobacco abuse. PLAN: He was admitted to the medical unit at [facility], placed on and a regular diet, O2 per protocol, telemetry. We will place on normal saline at 100 mL an hour. Will recheck a BMP at 4 p.m. today, as we do not want him to over-correct on his sodium. We want to make sure that he goes slowly. Rocephin 1 gram IV q.24, DuoNeb q.4 hours. Continue his home medications. We will also check a urine sodium osmolality and creatinine. Dictated by JOSE GUADALUPE Bernal for Hero Dee MD cc: JOSE GUADALUPE Bernal MD Dr. Thomas pt examined, seen face to face on day admission, exam is benign, no evidence of neurologic deficit, no wheezes noted on lung exam, still with hyponatremia, will slowly hydrate, pursue workup, this may be related to HCTZ effect APENOT MTDD
[2017-05-12] MEDS: VENTOLIN HFA INH SCH (14:55)
[2017-05-12 16:10] LABS: AGAP 14; BUN 16 mg/dL (8-22); CALCIUM 8.7 mg/dL (8.8-10.2); CHLORIDE 83 mmol/L (98-107); COSMO 238; TCO2 19 mmol/L (25-35)
[2017-05-12 16:57] LABS: SODIUM 116 mmol/L (136-145)
[2017-05-12] MEDS: LOVENOX SUBQ SCH (18:34)
[2017-05-12] MEDS: ZOCOR PO SCH (20:37)
[2017-05-12] MEDS: LOPRESSOR PO SCH (20:38)
[2017-05-12 20:59] LABS: UR CREAT RANDOM 43.4 mg/dL (14-26)
[2017-05-12 21:34] LABS: AGAP 14; BUN 16 mg/dL (8-22); CALCIUM 8.7 mg/dL (8.8-10.2); CHLORIDE 87 mmol/L (98-107); COSMO 240; POTASSIUM 4.2 mmol/L (3.5-5.1); TCO2 17 mmol/L (25-35)
[2017-05-12 21:49] LABS: SODIUM 118 mmol/L (136-145)
[2017-05-12] MEDS: ROCEPHIN 1 GM in NS 50 ML IV SCH (23:41)
[2017-05-13] MEDS: DUONEB (A & A) INH SCH ×6 (04:13→23:41)
[2017-05-13 06:09] LABS: MANUAL DIFF NEEDED? NO
[2017-05-13 06:26] LABS: EOS# 0.01 X1000 (0.0-0.7); EOS% 0.2 % (0.0-10.0); HEMATOCRIT 30.8 % (42.0-52.0); LYMPH# 0.45 X1000 (1.2-3.4); LYMPH% 8.9 % (20.5-51.1); MCH 32.7 PG (27-31); MCHC 35.7 g/dL (33-37); MCV 91.7 FL (81-99); MONO# 0.79 X1000 (0.11-0.59); MONO% 15.7 % (1.7-9.3); MPV 9.1 FL (7.4-10.4); NEUT% 75.2 % (42.2-75.2); PLT 266 X1000 (130-400); RBC 3.36 XMIL (4.7-6.1)
[2017-05-13 06:37] LABS: AGAP 13; BUN 14 mg/dL (8-22); CALCIUM 8.3 mg/dL (8.8-10.2); CHLORIDE 89 mmol/L (98-107); COSMO 245; POTASSIUM 3.9 mmol/L (3.5-5.1); SODIUM 122 mmol/L (136-145); TCO2 20 mmol/L (25-35)
[2017-05-13] MEDS: SYMBICORT 80/4.5 MICROGM INHALER INH SCH ×2 (07:17→14:36)
[2017-05-13] MEDS: FOLIC ACID PO SCH (10:19)
[2017-05-13] MEDS: VALTREX PO SCH (10:19)
[2017-05-13] MEDS: LOPRESSOR PO SCH ×2 (10:19→20:46)
[2017-05-13] MEDS: PLAVIX PO SCH (10:19)
[2017-05-13] MEDS: NS 1,000 ML IV SCH ×2 (10:24→21:27)
[2017-05-13] MEDS: VENTOLIN HFA INH SCH (10:36)
--- NOTE | 2017-05-13 17:18 | PROGRESS NOTE ---
DATE: 05/13/2017 SUBJECTIVE: Patient sitting on the side of the bed. No complaints voiced. OBJECTIVE: Vital Signs: Temperature 99.3, pulse 81, respirations 18, blood pressure 144/72, saturating 93% on room air. General: This is an 82-year-old male, who is sitting on the side of the bed and answers questions appropriately. HEENT: Normocephalic and atraumatic. The pupils are equal, round, reactive to light. Extraocular movements are intact. The oropharynx and nares are clear. Neck: Supple. Lungs: Clear to auscultation bilaterally with equal lung expansion and chest wall movement. Heart: With regular rate and rhythm. No murmurs, rubs, or gallops. Abdomen: Soft, nontender, nondistended. Bowel sounds are present x4 quadrants. Extremities: No clubbing, cyanosis, or edema. Neurological: The cranial nerves 2-12 are grossly intact. LABORATORY DATA: Showed a white blood cell count of 5.03, hemoglobin of 11, hematocrit 30.8, platelets 266. Sodium 122, potassium 3.9, chloride 89, CO2 of 20, BUN of 14, with a creatinine of 0.7. ASSESSMENT AND PLAN: 1. An acute chronic obstructive pulmonary disease exacerbation. We will continue his O2 per protocol, DuoNeb, IV antibiotics. 2. Hyponatremia, improving. Continue his normal saline at 100 mL an hour. We will recheck a BMP in the a.m. 3. Leukopenia. Is improved. We will recheck a CBC in the a.m. 4. Tobacco abuse, stable. Dictated by JOSE GUADALUPE Bernal for Hero Dee MD cc: JOSE GUADALUPE Bernal MD pt examined, seen face to face, pulmonary exam shows no wheezing, pt has no focal deficits, sodium is normalizing, plan for dc soon APENOT MTDD
[2017-05-13] MEDS: LOVENOX SUBQ SCH (18:20)
[2017-05-13] MEDS: ZOCOR PO SCH (20:46)
[2017-05-13] MEDS: ROCEPHIN 1 GM in NS 50 ML IV SCH (21:27)
[2017-05-13] MEDS: REMERON SOLTAB PO PRN (23:14)
[2017-05-14] MEDS: DUONEB (A & A) INH SCH ×6 (03:06→23:40)
[2017-05-14 06:43] LABS: MANUAL DIFF NEEDED? NO
[2017-05-14 06:47] LABS: BASO% 0.3 % (0.0-0.8); EOS# 0.02 X1000 (0.0-0.7); EOS% 0.5 % (0.0-10.0); HEMOGLOBIN 9.9 g/dL (14.0-18.0); IMM GRAN# 0.01 X1000 (0.0-0.04); IMM GRAN% 0.3 % (0.0-0.5); LYMPH# 0.43 X1000 (1.2-3.4); LYMPH% 11.4 % (20.5-51.1); MCH 32.9 PG (27-31); MCHC 35.4 g/dL (33-37); MONO% 13.2 % (1.7-9.3); MPV 8.6 FL (7.4-10.4); NEUT% 74.3 % (42.2-75.2); PLT 255 X1000 (130-400); RBC 3.01 XMIL (4.7-6.1)
[2017-05-14 07:00] LABS: AGAP 10; BUN 13 mg/dL (8-22); CALCIUM 8.1 mg/dL (8.8-10.2); CHLORIDE 99 mmol/L (98-107); COSMO 260; POTASSIUM 3.6 mmol/L (3.5-5.1); SODIUM 130 mmol/L (136-145); TCO2 21 mmol/L (25-35)
[2017-05-14] MEDS: NS 1,000 ML IV SCH (07:29)
[2017-05-14] MEDS: SYMBICORT 80/4.5 MICROGM INHALER INH SCH (08:03)
[2017-05-14] MEDS: PLAVIX PO SCH (08:54)
[2017-05-14] MEDS: FOLIC ACID PO SCH (08:54)
[2017-05-14] MEDS: LOPRESSOR PO SCH (08:54)
[2017-05-14] MEDS: VALTREX PO SCH (08:54)
[2017-05-14] MEDS ORDERED: BENADRYL IV ONE (11:41)
[2017-05-14] MEDS ORDERED: SOLU-MEDROL IV ONE (11:41)
[2017-05-14] MEDS ORDERED: NS 1,000 ML IV SCH (11:42)
--- NOTE | 2017-05-14 14:31 | PROGRESS NOTE ---
DATE: 05/14/2017 SUBJECTIVE: Patient has no focal complaints. OBJECTIVE: Vital Signs: Blood pressure 165/83, heart rate of 55, respiratory rate 16, temperature 99.1, 99% on 2 L. Cardiovascular: Regular rate and rhythm. Pulmonary: Bilateral breath sounds. Clear to auscultation. GI: Soft, nontender, nondistended. Bowel sounds are positive. Extremities: No clubbing or cyanosis. HEENT: Facial exam: He had tense edema over his left cheek and into his mandibular area. His lower lip had some swelling as well. LABORATORY DATA: Sodium is 130. White count 3.7. Hemoglobin and hematocrit 9 and 28, platelets 255. PROBLEM LIST: 1. Hyponatremia. Clinically, this has improved. I am going to decrease his fluids and follow closely. 2. Chronic obstructive pulmonary disease exacerbation. Continue breathing treatments. I am going to add some steroids today because of this facial swelling issue and we will follow, but clinically he has improved. He is on Rocephin, so we will monitor that. 3. Leukopenia. That has essentially been stable. Probably go ahead and do a peripheral smear. Check B12, folate levels and follow. DISPOSITION: Plan was for discharge today, but with the facial swelling issues, we will monitor a little bit more closely. At least for another 24 hours. cc: Hero Dee MD
[2017-05-14] MEDS: LOVENOX SUBQ SCH (17:57)
[2017-05-14] MEDS: ZOCOR PO SCH (20:40)
[2017-05-14] MEDS: ROCEPHIN 1 GM in NS 50 ML IV SCH (21:00)
[2017-05-14] MEDS: REMERON SOLTAB PO PRN (23:50)
[2017-05-14] MEDS: SOLU-MEDROL IV SCH (23:50)
[2017-05-15] MEDS: DUONEB (A & A) INH SCH ×6 (03:28→23:50)
[2017-05-15] MEDS ORDERED: REMERON SOLTAB PO PRN (07:02)
[2017-05-15 07:33] LABS: HEMATOCRIT 27.5 % (42.0-52.0); HEMOGLOBIN 9.4 g/dL (14.0-18.0); MCHC 34.2 g/dL (33-37); MCV 96.5 FL (81-99); MPV 8.7 FL (7.4-10.4); RBC 2.85 XMIL (4.7-6.1)
[2017-05-15 07:36] LABS: AGAP 10; BUN 16 mg/dL (8-22); CALCIUM 8.7 mg/dL (8.8-10.2); CHLORIDE 101 mmol/L (98-107); COSMO 270; POTASSIUM 3.9 mmol/L (3.5-5.1); SODIUM 132 mmol/L (136-145); TCO2 21 mmol/L (25-35)
[2017-05-15] MEDS: VALTREX PO SCH (08:34)
[2017-05-15] MEDS: PLAVIX PO SCH (08:34)
[2017-05-15] MEDS: FOLIC ACID PO SCH (08:34)
[2017-05-15] MEDS: SYMBICORT 80/4.5 MICROGM INHALER INH SCH (08:58)
[2017-05-15] MEDS: SOLU-MEDROL IV SCH (13:27)
[2017-05-15] MEDS ORDERED: SODIUM CHLORIDE 0.9% INJ SCH (15:15)
[2017-05-15] MEDS: PEPCID IV SCH (15:55)
[2017-05-15] MEDS: LOVENOX SUBQ SCH (17:29)
--- NOTE | 2017-05-15 18:24 | Diag Imaging Result Doc PS360 ---
EXAM: CT NECK W/CONTRAST HISTORY: right facial swelling and lower mandible TECHNIQUE: CT of the neck with intravenous contrast and dose reduction (clarity.) COMMENT: The visualized portion of the brain is within normal limits. There is some generalized subcutaneous edema. The salivary glands are symmetrical in appearance. The nasopharynx and pharynx are unremarkable. The larynx is unremarkable. There is no evidence of significant adenopathy. There is some motion artifact with regard to the mandible. The mandible appears to be intact. There is mucosal thickening and some mucus in the left maxillary sinus. The visualized portion of the lungs are without evidence of acute disease. There are spondylotic changes throughout the cervical spine. IMPRESSION: No evidence of acute disease. Electronically signed by Nasir Sams 05/15/2017 6:22 PM
--- NOTE | 2017-05-15 19:26 | PROGRESS NOTE ---
DATE: 05/15/2017 SUBJECTIVE: Really patient has no complaints. He seems to be doing okay. He does have facial swelling although it is still there a little bit less pronounced than yesterday. PHYSICAL EXAMINATION: Vital signs: Blood pressure was 166/68, heart rate 58, respiratory 18, temperature 98.7 degrees, 100% on 2 L. Cardiovascular: Regular rate and rhythm. Pulmonary: Bilateral breath sounds. Clear to auscultation. GI: Soft, nontender, nondistended. Bowel sounds are positive. LABORATORY DATA: White count 6, hemoglobin and hematocrit 9 and 27, platelets 238,000. Sodium is up to 132. PROBLEM LIST: 1. Chronic obstructive pulmonary disease exacerbation. This seems to be doing better. He is on breathing treatments. I am going to convert his Omnicef to p.o. 2. Hyponatremia. This continues to improve. We will continue fluid restriction and monitor. 3. Facial swelling. Unclear what his diagnosis is, he is certainly at risk for angioedema but he has not been getting his ARB which I think his hydrochlorothiazide definitely needs to be discontinued because I think that was the mechanism of his hyponatremia. We will go ahead and CT his head neck just to make sure that there is not some underlying pathology, if all that is stable I think and improved we can probably go home tomorrow. cc: Hero Dee MD
[2017-05-15] MEDS: ZOCOR PO SCH (21:03)
[2017-05-16] MEDS: SOLU-MEDROL IV SCH ×2 (00:47→12:15)
[2017-05-16] MEDS: PEPCID IV SCH ×2 (03:27→14:54)
[2017-05-16] MEDS: DUONEB (A & A) INH SCH ×2 (03:53→07:20)
[2017-05-16 07:03] LABS: AGAP 9; BUN 23 mg/dL (8-22); CALCIUM 8.7 mg/dL (8.8-10.2); CHLORIDE 102 mmol/L (98-107); COSMO 273; POTASSIUM 3.9 mmol/L (3.5-5.1); SODIUM 133 mmol/L (136-145); TCO2 22 mmol/L (25-35)
[2017-05-16 07:27] LABS: HEMATOCRIT 25.5 % (42.0-52.0); HEMOGLOBIN 8.7 g/dL (14.0-18.0); MCH 33.1 PG (27-31); MCHC 34.1 g/dL (33-37); MPV 8.7 FL (7.4-10.4); RBC 2.63 XMIL (4.7-6.1)
[2017-05-16] MEDS: SYMBICORT 80/4.5 MICROGM INHALER INH SCH (07:27)
[2017-05-16 07:57] VITALS: BP 162/71
[2017-05-16] MEDS: PLAVIX PO SCH (08:13)
[2017-05-16] MEDS: VALTREX PO SCH (08:13)
[2017-05-16] MEDS: FOLIC ACID PO SCH (08:13)
[2017-05-16] MEDS ORDERED: LACTULOSE PO ONE (08:33)
[2017-05-16] MEDS ORDERED: OMNICEF PO SCH (09:00)
--- NOTE | 2017-05-16 15:11 | Diag Imaging Result Doc PS360 ---
EXAM: CHEST-PORTABLE HISTORY: dyspnea TECHNIQUE: AP portable chest at 1408 COMMENT: There may be minimal subsegmental atelectasis over the right base. The lungs are not as well-expanded as on 05/11/2017. IMPRESSION: Questionable atelectasis. Otherwise no evidence of acute disease. Electronically signed by Nasir Sams 05/16/2017 3:08 PM
--- NOTE | 2017-05-16 19:53 | DISCHARGE SUMMARY ---
ADMISSION DATE: 05/11/2017 DISCHARGE DATE: 05/16/2017 DISCHARGE DIAGNOSES: 1. Hyponatremia. 2. Chronic obstructive pulmonary disease exacerbation. 3. Facial swelling of undetermined significance, may have been related to just volume. 3. History of multiple myeloma. DISCHARGE DIAGNOSES: 1. Hyponatremia. 2. Chronic obstructive pulmonary disease exacerbation. 3. Facial swelling of undetermined significance, may have been related to just volume. 3. History of multiple myeloma. HOSPITAL COURSE: Briefly, this is an 82-year-old gentleman presenting with shortness of breath. He is a multiple myeloma patient of Dr. Nieves. He was admitted for treatment. He did have significant hyponatremia when he came in, sodium 113. He was slowly placed on normal saline, went to 116, 122 by the , and at discharge was 133. Based on his urine electrolytes, it was not consistent with SIADH. His urine Osm's were 188. Urine sodium was 17. In any case, I think it was most likely related to losartan/hydrochlorothiazide effect. Clinically he seemed to be doing okay. His breathing issues essentially resolved within 24 hours. On hospital day 3 he started developing worsening swelling of his left face which we really did not have quite an explanation for. We started some steroids on him. He had not been getting his losartan, so I do not think that was a cause of his facial swelling. We did do a head and neck CT which was really unremarkable. His salivary glands in particular were not swollen. No evidence of sialoadenitis. In any case, clinically he felt improved and he was discharged in stable condition on the 3rd. Breathing was essentially normal on the 3rd. No wheezing. DISCHARGE MEDICATIONS: 1. Albuterol DuoNeb q.4 hours. 2. Symbicort 10.2 daily. 3. Plavix 75 daily. 4. Folic acid 1 daily. 5. Lasix 20 p.r.n. 6. I am going to stop his losartan/hydrochlorothiazide because I am not sure if it may be contributing to other issues. 7. Lopressor 50 b.i.d. 8. Remeron 30 p.r.n. sleep. 9. Zofran p.r.n. 10.Phenergan p.r.n. 11.Simvastatin 20 daily. 12.Valtrex 500 daily. 13.We will also discharge on Omnicef for another 5 days, 500 b.i.d., and a Medrol Dosepak. DISCHARGE CONDITION: Stable. FOLLOWUP: He needs to follow up with his PCP, Dr. Shane Dwyer, in 1 week. Return for worsening shortness of breath. I would recommend followup basic metabolic profile in 1 week. TIME: Thirty-two minute discharge. cc: Hero Dee MD
== END 2017-05-16 15:40 | disposition home health service (06) ==
LOC: P.ED 20:11 → P.MEDSURG 22:46
PROVIDERS: ATTEND Internal Medicine